=== PATIENT | female | born 1985 | race Caucasian/White ===

== ENCOUNTER 2024-04-30 22:29 | Emergency (ER) | payer MEDICAID ==
[~2024-04-30] VITALS: Ht 152.4 cm; Wt 85.2 kg
[2024-04-30 22:31] VITALS: O2SAT 98
[2024-04-30 22:35] VITALS: BP 127/63; PULSE 92; RESP 16; TEMP 98.6; O2SAT 97
[2024-04-30 23:48] LABS: BASOPHILS % 0.3 % (0.0-2.0); EOSINOPHILS % 1.3 % (0.0-5.0); HEMATOCRIT. 36.7 % (36.0-48.0); HEMOGLOBIN. 12.1 g/dL (12.0-16.0); LYMPHOCYTES % 25.7 % (20.0-50.0); MEAN CORPUSCULAR HEMOGLOBIN 26.9 pg (28.0-32.0); MEAN CORPUSCULAR HGB CONC 32.9 g/dL (31.0-37.0); MEAN CORPUSCULAR VOLUME 81.8 fL (81.0-99.0); MONOCYTES % 5.9 % (2.0-8.0); NEUTROPHILS % 66.8 % (40.0-76.0); PLATELET 317 x1000/uL (130-400); RED BLOOD CELL COUNT 4.48 mill/uL (4.2-5.4); RED CELL DISTRIBUTION WIDTH 14.7 % (11.6-14.6); WHITE BLOOD COUNT 13.5 x1000/uL (4.5-11.0)
[2024-05-01] LABS: CHLORIDE 107 mEq/L (98-107); POTASSIUM 3.9 mEq/L (3.5-5.1); SODIUM 137 mEq/L (136-145)
[2024-05-01] MEDS ORDERED: HYDROCODONE/ACETAMINOPHEN 5/325MG TABLET PO ONE
[2024-05-01 00:01] LABS: CALCIUM 9.6 mg/dL (8.7-10.4); CARBON DIOXIDE 24 mEq/L (21-32)
[2024-05-01 00:06] LABS: CLARITY URINE CLEAR (CLEAR); COLOR URINE YELLOW (YELLOW); GLUCOSE URINE NEGATIVE (NEGATIVE); KETONES URINE NEGATIVE (NEGATIVE); LEUKOCYTE ESTERASE URINE NEGATIVE (NEGATIVE); NITRITE URINE NEGATIVE (NEGATIVE); OCCULT BLOOD URINE TRACE (NEGATIVE); PROTEIN URINE NEGATIVE (NEGATIVE); SPECIFIC GRAVITY URINE 1.022 (1.005-1.030); UROBILINOGEN URINE 0.2 E.U./dL (0.2-1.0)
[2024-05-01 00:06] LABS: CREATININE 0.5 mg/dL (0.6-1.0); GLUCOSE 111 mg/dL (70-105); UREA NITROGEN BLOOD 15 mg/dL (9-23)
[2024-05-01 00:08] LABS: ALANINE AMINOTRANSFERASE 20 IU/L (10-49); ALBUMIN 4.3 g/dL (3.2-4.8); ASPARTATE AMINOTRANSFERASE 22 IU/L (<34); BILIRUBIN TOTAL 0.2 mg/dL (0.1-1.0)
[2024-05-01 00:09] LABS: PROTEIN TOTAL 7.5 g/dL (6.0-8.3)
[2024-05-01 00:11] LABS: BILIRUBIN DIRECT < 0.1 mg/dL (<=3.0)
[2024-05-01 00:19] LABS: HCG SCREEN NEGATIVE
[2024-05-01 01:41] LABS: SQUAMOUS EPITHELIAL CELL URINE FEW /lpf (RARE/1+)
[2024-05-01 01:43] LABS: BACTERIA URINE NONE SEEN; RBC URINE 0-2 /hpf (0-2); WBC URINE 0-2 /hpf (0-2)
[2024-05-01] MEDS ORDERED: MAG-55 MT (01:55)
[2024-05-01] MEDS ORDERED: PANT40TA51 MT (01:55)
[2024-05-01] MEDS: ONDANSETRON 4MG ODT PO ONE (02:38)
[2024-05-01] MEDS: PANTOPRAZOLE 40MG DR TABLET PO ONE (02:38)
[2024-05-01] MEDS: ONDANSETRON 4MG ODT PO NR (02:38)
[2024-05-01] MEDS: MAGNESIUM/ALUMINUM HYDROXIDE/SIMETHICONE 30ML UDC PO ONE (02:38)
[2024-05-01] MEDS: HYDROCODONE/ACETAMINOPHEN 5/325MG TABLET PO NR (02:38)
== END 2024-05-01 02:40 | disposition home or self-care (01) ==
LOC: ER 22:29
DX: K76.0 Fatty (change of) liver, not elsewhere classified (principal); Z79.899 Other long term (current) drug therapy; Z87.19 Personal history of other diseases of the digestive system
CPT/HCPCS: 80076; 80048; 81003; 84703; 83690; 85025; 36415; 99284; 74176; 76705; Q0162; Z7610

== ENCOUNTER 2025-04-25 15:47 | Emergency (ER) | payer MEDICAID ==
[~2025-04-25] VITALS: Ht 157.5 cm; Wt 59.0 kg
[~2025-04-25 15:47] MED LIST: MAG-55 MT; PANT40TA51 MT
[2025-04-25 15:54] VITALS: TEMP 36.9; O2SAT 99
[2025-04-25 16:15] VITALS: TEMP 98.4
[2025-04-25] MEDS: ACETAMINOPHEN 325MG TABLET PO ONE (16:15)
[2025-04-25 16:24] LABS: BASOPHILS % 0.6 % (0.0-2.0); EOSINOPHILS % 1.0 % (0.0-5.0); HEMATOCRIT. 35.5 % (36.0-48.0); HEMOGLOBIN. 11.6 g/dL (12.0-16.0); LYMPHOCYTES % 27.9 % (20.0-50.0); MEAN PLATELET VOLUME 8.7 fl (7.4-10.4); MONOCYTES % 4.1 % (2.0-8.0); NEUTROPHILS % 66.4 % (40.0-76.0); PLATELET 339 x1000/uL (130-400); RED BLOOD CELL COUNT 4.58 mill/uL (4.2-5.4); RED CELL DISTRIBUTION WIDTH 16.0 % (11.6-14.6)
[2025-04-25 16:42] LABS: CREATININE 0.7 mg/dL (0.6-1.0); HCG SCREEN NEGATIVE; TROPONIN I HIGH SENSITIVITY < 4 ng/L (3.0-34)
[2025-04-25 16:43] LABS: UREA NITROGEN BLOOD 7 mg/dL (9-23)
[2025-04-25] MEDS ORDERED: NAPR-1176 MT (17:10)
[2025-04-25 17:43] VITALS: BP 141/75; PULSE 68; RESP 12; O2SAT 100
== END 2025-04-25 17:45 | disposition home or self-care (01) ==
LOC: ER 15:47
DX: R07.9 Chest pain, unspecified (principal); D64.9 Anemia, unspecified; Z79.899 Other long term (current) drug therapy
CPT/HCPCS: 36415; 71045; 80048; 84484; 84703; 85025; 93005; 99285